=== PATIENT | female | born 1970 | race Caucasian/White ===

== ENCOUNTER 2016-12-24 16:04 | Emergency (ER) | payer OTHER ==
[2016-12-24] MEDS ORDERED: PREDNISONE 20 MG TABLET ONE (18:14)
[2016-12-24] MEDS ORDERED: ALBUTEROL/IPRATROPIUM 2.5/0.5 MG 3 ML/EACH DOSE ONE (18:23)
--- NOTE | 2016-12-24 19:00 | RAD ---
CHEST 2 VIEWS HISTORY: Cough. Frontal and lateral chest radiographs dated 12/24/2016. COMPARISON: None. FINDINGS: FOCAL AIRSPACE OPACITY: No gross airspace consolidation. PLEURAL EFFUSION: None. CARDIOMEDIASTINAL SILHOUETTE: Nonenlarged. PNEUMOTHORAX: None identified. OSSEOUS STRUCTURES: No grossly destructive lesions. IMPRESSION: No acute cardiopulmonary process noted.
== END 2016-12-24 19:19 | disposition home or self-care (01) ==
LOC: ED 16:04
DX: J45.909 Unspecified asthma, uncomplicated (principal); I10 Essential (primary) hypertension
CPT/HCPCS: 71020; 94640; 99284; 99283; J7512